=== PATIENT | female | born 1975 | race Caucasian/White ===

== ENCOUNTER 2024-01-30 20:51 | Emergency (ER) | payer MEDICAID ==
[2024-01-30] MEDS: diphenhydrAMINE 50 MG/ML SDV IVPUSH ONE (21:33)
[2024-01-30] MEDS: Metoclopramide 10 MG/2 ML SDV IVPUSH ONE (21:34)
[2024-01-30] MEDS: Lactated Ringers 1,000 ML IV SCH (21:35)
[2024-01-30] MEDS: LORazepam 2 MG/ML SDV IVPUSH ONE (22:19)
== END 2024-01-30 22:50 | disposition home or self-care (01) ==
LOC: LL.ED 20:51
DX: R51.9 Headache, unspecified (principal); I25.2 Old myocardial infarction; E11.22 Type 2 diabetes mellitus with diabetic chronic kidney disease; N18.30 Chronic kidney disease, stage 3 unspecified; Z95.5 Presence of coronary angioplasty implant and graft; Z88.8 Allergy status to other drugs, medicaments and biological substances
CPT/HCPCS: 70450; 96374; 96375; 99284; J1200; J2060; J2765; J7120

== ENCOUNTER 2025-05-24 11:09 | Day surgery (SDC) | payer MEDICARE, MEDICAID ==
[~2025-05-24 11:09] MED LIST: Midazolam 1 MG/ML 2 ML SDV ONE; Propofol 200 MG/20 ML SDV ONE; Sodium Chloride 0.9% 10 ML Syringe FLUSH PRN
[2025-05-24] MEDS: Lactated Ringers 1,000 ML IV SCH (13:09)
== END 2025-05-24 14:05 | disposition home or self-care (01) ==
LOC: LL.SDS 11:09
PROVIDERS: ATTEND Surgery
DX: Z12.11 Encounter for screening for malignant neoplasm of colon (principal); D12.3 Benign neoplasm of transverse colon; K62.1 Rectal polyp; I12.0 Hypertensive chronic kidney disease with stage 5 chronic kidney disease or end stage renal disease; E11.22 Type 2 diabetes mellitus with diabetic chronic kidney disease; N18.5 Chronic kidney disease, stage 5; F17.210 Nicotine dependence, cigarettes, uncomplicated; Z88.8 Allergy status to other drugs, medicaments and biological substances; Z79.899 Other long term (current) drug therapy
CPT/HCPCS: 00811; J2250; J2704; J7120